=== PATIENT | female | born 1985 ===

== ENCOUNTER 2019-02-04 10:57 | Outpatient (CLI) | payer OTHER ==
[~2019-02-04] VITALS: Ht 165.1 cm; Wt 59.0 kg
== END 2019-02-04 11:15 | disposition home or self-care (01) ==
LOC: OFIC 805 10:57
DX: J34.2 Deviated nasal septum (principal); G44.009 Cluster headache syndrome, unspecified, not intractable; H93.90 Unspecified disorder of ear, unspecified ear; R09.81 Nasal congestion